=== PATIENT | female | born 1955 | race African-American/Black ===

== ENCOUNTER 2016-09-22 15:56 | Emergency (ER) | payer MEDICAID ==
[~2016-09-22] VITALS: Ht 157.5 cm; Wt 69.0 kg
[~2016-09-22 15:56] MED LIST: ASPI-1035; BENA5TAB3; CEPH500C2; DIPH25CA83; METF500T4; MULT-1146; ZOLP10TA2
[2016-09-22 15:59] VITALS: BP 149/59
== END 2016-09-22 19:30 | disposition left against medical advice (07) ==
LOC: ER 15:56
DX: R10.9 Unspecified abdominal pain (principal); Z53.21 Procedure and treatment not carried out due to patient leaving prior to being seen by health care provider

== ENCOUNTER 2021-06-07 12:28 | Emergency (ER) | payer MEDICAID, OTHER ==
[~2021-06-07] VITALS: Ht 165.1 cm; Wt 100.0 kg
[~2021-06-07 12:28] MED LIST changes: -ASPI-1035; +ASPI-1406; -BENA5TAB3; +BENA5TAB6; +METF-414; -METF500T4
[2021-06-07] MEDS ORDERED: KETOROLAC 30MG/ML VIAL IV STA (13:00)
[2021-06-07] MEDS ORDERED: MORPHINE SULFATE 4 MG/ML CPJ (NOT FOR IM USE) IV STA (13:00)
[2021-06-07 14:33] LABS: BASOPHILS % 0.4 % (0.0-2.0); EOSINOPHILS % 1.5 % (0.0-5.0); HEMATOCRIT. 42.2 % (36.0-48.0); HEMOGLOBIN. 13.9 g/dL (12.0-16.0); LYMPHOCYTES % 25.8 % (20.0-50.0); MEAN CORPUSCULAR HEMOGLOBIN 29.8 pg (28.0-32.0); MEAN CORPUSCULAR VOLUME 90.7 fL (81.0-99.0); MEAN PLATELET VOLUME 9.8 fl (7.4-10.4); MONOCYTES % 10.4 % (2.0-8.0); NEUTROPHILS % 61.9 % (40.0-76.0); PLATELET 205 x1000/uL (130-400); RED BLOOD CELL COUNT 4.66 mill/uL (4.2-5.4); RED CELL DISTRIBUTION WIDTH 14.4 % (11.6-14.6)
[2021-06-07 14:38] LABS: CHLORIDE 110 mEq/L (98-107)
[2021-06-07 17:15] VITALS: BP 149/77
[2021-06-07] MEDS ORDERED: IOHEXOL-350 100 ML BOTTLE ONE (17:40)
[2021-06-08] MEDS ORDERED: AZIT500T8 MT (18:34)
== END 2021-06-07 19:25 | disposition home or self-care (01) ==
LOC: ER 12:28
DX: U07.1 COVID-19 (principal); R07.89 Other chest pain; I10 Essential (primary) hypertension; E11.9 Type 2 diabetes mellitus without complications; E78.00 Pure hypercholesterolemia, unspecified; E03.9 Hypothyroidism, unspecified; Z79.82 Long term (current) use of aspirin
CPT/HCPCS: 36415; 71045; 71275; 80053; 83880; 84484; 85025; 87426; 93005; 96374; 96375; 99285; J1885; J2270; Q9967